=== PATIENT | male | born 1945 | race Caucasian/White ===

== ENCOUNTER → 2017-11-30 | Day surgery (SDC) | payer MEDICARE ==
[~2017-11-30] MED LIST: AMLO10 PO; ASPI1TAB57 PO; AZEL1SPR2; BENZ100 PO; BENZ1CAP34 PO; CALCTAB38 PO; CLON0.2T PO; COLC1TAB15 PO; D-20TAB3 PO; DEXA4TAB PO; DEXI30CA2 PO; DOCU100C15 PO; FLAX10002 PO; FLUT1SPR5 EACH NARE; FOLI1TAB6 PO; GABA300C5 PO; GLUCCAP5 PO; GUAI600 PO; KLOR10TA PO; LIDOCAINE HCL 1% 30 ML VIAL NERV BLOCK ONE; LOSA100T PO; MELO15TA20 PO; MIRA3350 PO; MULT1TAB PO; OLOP0.15 NASAL; POTA10CA PO; PROPOFOL 200 MG/20 ML AMP IV ONE; REST0.05 EACH EYE; REVLIMID PO; SODIUM CHLORIDE 0.9% 10 ML VIAL ONE; TRIA1TAB5 PO; TRIAMCINOLONE ACETONIDE 40 MG/ML VIAL NERV BLOCK ONE; VITA-142 PO; ZOLE5INJ3 IV; ZOVI400T PO; [UNRECOGNIZED DRUG - CODE] PO
--- NOTE | 2017-11-30 10:46 | M6 ---
cc: Martina Boo MD DATE: 11/30/2017 PROCEDURE PERFORMED: Fluoroscopically guided left L1-2 and left L2-3 transforaminal epidural steroid injection. History and physical was completed and signed. Consent was signed. Procedure site was marked. Medications were listed and reconciled. Pain score was recorded. Allergies were noted. Time out was taken. Fluoroscopy time was recorded where applicable. Sedation was administered or directed by Dr. Boo. The patient was given oxygen. The patient was monitored by a registered nurse. Total procedure time was greater than 15 minutes. PROCEDURE NOTE: IV was started. Blood pressure cuff pulse oximeter and EKG were applied. The patient was placed in the prone position on a Gareth table, sedated with small amounts of propofol titrated to effect. Vital signs were monitored and remained stable throughout the procedure. The lumbar area was prepped with alcohol and 10% Betadine solution and draped with sterile drapes. Fluoroscopy was used in an AP and lateral projection to clearly visualize the left L1-2 and left L2-3 neural foramen. Separate sterile 3.5 inch, 22 gauge Chiba needles were advanced into the dorsal aspect of each foramen. There was negative aspiration for blood and any other type of fluid and the patient was given 3 mL of 1% Xylocaine, 3 mL of normal saline and 40 mg of Kenalog at each location. Following this, the patient was taken to the recovery room with stable vital signs and neurologically intact. He will be evaluated immediately and will followup to determine if he has a subjective decrease in his usual pain and a corresponding objective increase in his functional capabilities. MD MEREDITH Salvador/LISA , 10:16 AM , 10:45 AM
== END | disposition home or self-care (01) ==
LOC: PHSDC 08:58
PROVIDERS: ATTEND Pain Medicine Interventional Pain Medicine
DX: M54.5 Low back pain (principal); M25.552 Pain in left hip
CPT/HCPCS: 64483; 64484; 99152; J3301

== ENCOUNTER → 2017-12-14 | Day surgery (SDC) | END | disposition home or self-care (01) | DX: M25.552 Pain in left hip (principal); R10.30 Lower abdominal pain, unspecified | CPT/HCPCS: 64483; 64484; 99152; J3301 ==